=== PATIENT | male | born 1975 | race American Indian/Alaskan Native ===

== ENCOUNTER 2020-04-24 09:41 | Emergency (ER) | payer SELFPAY ==
[2020-04-24] MEDS ORDERED: HYDROcodone/ACETAMINOPHEN 5-325 MG TAB PO ONE (11:14)
--- NOTE | 2020-04-24 11:53 | Emergency Department Report ---
ED Lower Extremity HPI - General Chief Complaint: Extremity Injury, Lower Stated Complaint: SLIP AND FALL ON LEFT TENDON Time Seen by Provider: 04/24/20 10:19 Source: patient Mode of arrival: Ambulatory Limitations: No Limitations - History of Present Illness Initial Comments: Patient is a 44-year-old male who presents emergency room with complaints of left lower leg injury that occurred just prior to arrival. Patient states that he was doing a obstacle course at the [facility] [employer]. He states that he was going through a wooden window and when he landed on the left heel he immediately felt pain in his left heel and left calf and fell to the ground. He states that he is not able to flex the foot. He states he has had a prior injury to this left leg, he states he had a patella tendon rupture in 2013. He has not been ambulatory since the incident secondary to pain. He denies any numbness or tingling. Past medical history of hypertension and he states he takes hydrochlorothiazide which he reports he took this morning. He has an allergy to oxycodone but denies an allergy to hydrocodone. - Related Data Previous Rx's Medication Instructions Recorded Last Taken Type HYDROcodone/APAP 5-325 [Linn 1 each PO Q6HR PRN #10 tablet 04/24/20 Unknown Rx 5/325] Ibuprofen [Motrin 600 MG tab] 600 mg PO Q8H PRN #20 tablet 04/24/20 Unknown Rx amLODIPine 5 mg PO DAILY #30 tab 04/24/20 Unknown Rx Allergies Allergy/AdvReac Type Severity Reaction Status Date / Time acetaminophen [From Percocet] Allergy Itching Verified 04/24/20 09:46 oxycodone [From Percocet] Allergy Itching Verified 04/24/20 09:46 ED Review of Systems ROS: Stated complaint: SLIP AND FALL ON LEFT TENDON Other details as noted in HPI Comment: All other systems reviewed and negative ED Past Medical Hx - Past Medical History Hx Hypertension: Yes - Surgical History Past Surgical History?: Yes Additional Surgical History: Patellar tendon - Social History Smoking Status: Never Smoker - Medications Home Medications: Home Medications Medication Instructions Recorded Confirmed Last Taken Type HYDROcodone/APAP 5-325 [Linn 1 each PO Q6HR PRN #10 tablet 04/24/20 Unknown Rx 5/325] Ibuprofen [Motrin 600 MG tab] 600 mg PO Q8H PRN #20 tablet 04/24/20 Unknown Rx amLODIPine 5 mg PO DAILY #30 tab 04/24/20 Unknown Rx ED Physical Exam - General Limitations: No Limitations General appearance: alert, in no apparent distress - Head Head exam: Present: atraumatic, normocephalic - Eye Eye exam: Present: normal appearance - ENT ENT exam: Present: mucous membranes moist - Respiratory Respiratory exam: Absent: respiratory distress, accessory muscle use - Extremities Exam Extremities exam: Present: other (ttp to the left posterior heel, left achiles tendon attachment, and left calf, no obvious edema, no ecchymosis, no ttp to the left forefoot, toes, bilateral malleolus, he is unable to fully dorsiflex the left foot, neurovascularly intact) - Neurological Exam Neurological exam: Present: alert, oriented X3 - Psychiatric Psychiatric exam: Present: normal affect, normal mood - Skin Skin exam: Present: warm, dry, intact ED Course Vital Signs 04/24/20 04/24/20 09:47 12:09 Temperature 98.5 F 98.6 F Pulse Rate 111 H 94 H Respiratory 18 18 Rate Blood Pressure 188/125 Blood Pressure 192/126 [Right] O2 Sat by Pulse 95 95 Oximetry ED Lower Extremity MDM - Lab Data Vital Signs 04/24/20 04/24/20 09:47 12:09 Temperature 98.5 F 98.6 F Pulse Rate 111 H 94 H Respiratory 18 18 Rate Blood Pressure 188/125 Blood Pressure 192/126 [Right] O2 Sat by Pulse 95 95 Oximetry - Radiology Data Radiology results: report reviewed HISTORY:left achiles pain, left posterior leg pain COMPARISON: None. TECHNIQUE: AP lateral and obliques views were obtained FINDINGS: Bones: No fracture or dislocation. Joint spaces: Maintained. Soft tissues: No significant abnormality. Additional findings: None. IMPRESSION: 1. No significant abnormality. Signer Name: Aren Pack MD Signed: 04/24/2020 11:56 AM Workstation Name: [id number] Transcribed By: KATHY Dictated By: Aren Pack MD Electronically Authenticated By: Aren Pack MD Signed Date/Time: 04/24/201155 DD/ 55 TD/TT: LEFT FOOT 3 VIEWS INDICATION / CLINICAL INFORMATION: left heel pain, left achiles pain after injury. COMPARISON: None available. FINDINGS: There is some low density seen in the region of the Achilles tendon which is nonspecific in appearance. No bony abnormality is seen. MRI of the left ankle may be helpful for further evaluation if clinically indicated to assess the Achilles tendon Signer Name: Rey Blakely MD FACR Signed: 04/24/2020 11:57 AM Workstation Name: [id number] Transcribed By: MS Dictated By: Rey Blakely MD Electronically Authenticated By: Rey Blakely MD Signed Date/Time: 04/24/201156 DD/ 55 TD/TT: - Medical Decision Making Patient is a 44-year-old male who presents emergency room with complaints of left lower leg injury that occurred just prior to arrival. Patient states that he was doing a obstacle course at the [facility] [employer]. He states that he was going through a wooden window and when he landed on the left heel he immediately felt pain in his left heel and left calf and fell to the ground. He states that he is not able to flex the foot. He states he has had a prior injury to this left leg, he states he had a patella tendon rupture in 2013. He has not been ambulatory since the incident secondary to pain. He denies any numbness or tingling. Past medical history of hypertension and he states he takes hydrochlorothiazide which he reports he took this morning. He has an allergy to oxycodone but denies an allergy to hydrocodone. Initial vitals with tachycardia and elevated blood pressure, heart rate improved to normal but blood pressure remains elevated. Patient states that he did take his hydrochlorothiazide today, discussed elevated blood pressure with patient, discussed the importance of primary care follow-up, patient will be placed on low-dose of amlodipine, discussed lifestyle modifications. on exam: ttp to the left posterior heel, left achiles tendon attachment, and left calf, no obvious edema, no ecchymosis, no ttp to the left forefoot, toes, bilateral malleolus, he is unable to fully dorsiflex the left foot, neurovascularly intact. XR left foot: There is some low density seen in the region of the Achilles tendon which is nonspecific in appearance. No bony abnormality is seen. MRI of the left ankle may be helpful for further evaluation if clinically indicated to assess the Achilles tendon. XR left tib fib: 1. No significant abnormality. Examination is concerning for Achilles tendon rupture. Patient placed in splint by business insurance agent with 20 degrees of plantarflexion, and remained neurovascularly intact. Patient given crutches and crutch training by business insurance agent. Patient given pain medication while in the ED and symptoms improved. Patient given prescription for Linn, ibuprofen, amlodipine. advised pt Please take medication as prescribed. Do not drive or operate machinery while taking severe pain medication. Please do not bear weight on the leg until you have been cleared by the orthopedic doctor. Please follow-up with orthopedic doctor. Return to emergency room for new or worsening symptoms. Please follow-up with a primary care doctor regarding the elevation in your blood pressure during today's visit. Please take blood pressure medication as prescribed. Please keep a blood pressure log and take this to the primary care doctor. Eat a low-sodium/low salt diet. - Differential Diagnosis Strain, sprain, fracture, dislocation, contusion, tendinitis, tear Critical care attestation.: If time is entered above; I have spent that time in minutes in the direct care of this critically ill patient, excluding procedure time. ED Disposition Clinical Impression: Pain of left heel, Pain of left calf, Elevated blood pressure reading Achilles tendon sprain Qualifiers: Encounter type: initial encounter Laterality: left Qualified Code(s): S86.012A - Strain of left Achilles tendon, initial encounter Disposition: TO HOME OR SELFCARE Is pt being admited?: No Does the pt Need Aspirin: No Condition: Stable Instructions: Achilles Tendon Rupture (ED), Achilles Tendinitis (ED), Low So dium Diet (ED) Additional Instructions: Please take medication as prescribed. Do not drive or operate machinery while taking severe pain medication. Please do not bear weight on the leg until you have been cleared by the orthopedic doctor. Please follow-up with orthopedic doctor. Return to emergency room for new or worsening symptoms. Please follow- up with a primary care doctor regarding the elevation in your blood pressure during today's visit. Please take blood pressure medication as prescribed. Please keep a blood pressure log and take this to the primary care doctor. Eat a low-sodium/low salt diet. Prescriptions: amLODIPine 5 mg PO DAILY #30 tab Ibuprofen [Motrin 600 MG tab] 600 mg PO Q8H PRN #20 tablet PRN Reason: Pain, Moderate (4-6) HYDROcodone/APAP 5-325 [Linn 5/325] 1 each PO Q6HR PRN #10 tablet PRN Reason: Pain , Severe (7-10) Referrals: [facility] [Provider Group] - 2-3 Days IGNACIO RICO MD [Staff Physician] - 2-3 Days your, primary care doctor [Other] - 2-3 Days Time of Disposition: 12:19 Print Language: SERBIAN
--- NOTE | 2020-04-24 12:01 | XRay Report ---
HISTORY:left achiles pain, left posterior leg pain COMPARISON: None. TECHNIQUE: AP lateral and obliques views were obtained FINDINGS: Bones: No fracture or dislocation. Joint spaces: Maintained. Soft tissues: No significant abnormality. Additional findings: None. IMPRESSION: 1. No significant abnormality. Signer Name: Aren Pack MD Signed: 04/24/2020 11:56 AM Workstation Name: [id number]
--- NOTE | 2020-04-24 12:02 | XRay Report ---
LEFT FOOT 3 VIEWS INDICATION / CLINICAL INFORMATION: left heel pain, left achiles pain after injury. COMPARISON: None available. FINDINGS: There is some low density seen in the region of the Achilles tendon which is nonspecific in appearanc e. No bony abnormality is seen. MRI of the left ankle may be helpful for further evaluation if clinic ally indicated to assess the Achilles tendon Signer Name: Rey Blakely MD FACGa Signed: 04/24/2020 11:57 AM Workstation Name: [id number]
[2020-04-24 12:25] VITALS: BP 192/126
== END 2020-04-24 13:46 | disposition home or self-care (01) ==
LOC: ED 09:41
DX: S86.012A Strain of left Achilles tendon, initial encounter (principal); M79.672 Pain in left foot; M79.662 Pain in left lower leg; R03.0 Elevated blood-pressure reading, without diagnosis of hypertension; I10 Essential (primary) hypertension; Z88.8 Allergy status to other drugs, medicaments and biological substances; Z79.899 Other long term (current) drug therapy; Z98.890 Other specified postprocedural states; W01.0XXA Fall on same level from slipping, tripping and stumbling without subsequent striking against object, initial encounter; Y93.89 Activity, other specified; Y92.89 Other specified places as the place of occurrence of the external cause; Y99.8 Other external cause status